=== PATIENT | male | born 1950 | race Caucasian/White ===

== ENCOUNTER → 2018-02-21 13:34 | Outpatient (CLI) | payer MEDICARE, OTHER, SELFPAY ==
--- NOTE | 2018-02-21 13:39 | CDU_ITS ---
Reason For Study: amaurosis fugax Rt. Velocities/BP Lt. Velocities/BP Prox CCA 65/19 cm/sec. Prox CCA 107/32 cm/sec. Mid CCA 78/15 cm/sec. Mid CCA 82/21 cm/sec. Dist CCA 78/22 cm/sec. Dist CCA 85/21 cm/sec. Prox ICA 60/21 cm/sec. Prox ICA 75/31 cm/sec. Mid ICA 94/35 cm/sec. Mid ICA 83/32 cm/sec. Dist ICA 71/27 cm/sec. Dist ICA 74/24 cm/sec. Rt. ICA/CCA = 1.2. Lt. ICA/CCA = 1.0. Prox ECA 148/30 cm/sec. Prox ECA 117/29 cm/sec. Rt. Vert. 42/14 cm/sec. Lt. Vert. 52/14 cm/sec. Right Extracranial There is intimal thickening but no significant atherosclerotic plaque noted in the right common carotid artery. There is heterogeneous, irregular atherosclerotic plaque noted in the right internal carotid artery. There is homogeneous, smooth atherosclerotic plaque noted in the right external carotid artery. Antegrade flow is noted in the right vertebral artery. There is heterogeneous, irregular atherosclerotic plaque noted in the right bulb. Left Extracranial There is intimal thickening but no significant atherosclerotic plaque noted in the left common carotid artery. There is homogeneous, smooth atherosclerotic plaque noted in the left internal carotid artery. There is homogeneous, smooth atherosclerotic plaque noted in the left external carotid artery. Antegrade flow is noted in the left vertebral artery. There is homogeneous, smooth atherosclerotic plaque noted in the left bulb. Procedure Carotid Duplex [id number]. Exam performed in department. Interpretation Summary Mild (<50%) stenosis right extracranial internal carotid. Mild (<50%) stenosis left extracranial internal carotid. Flow within the vertebral arteries is antegrade bilaterally. Ordering Physician: Maciel An Referring Physician: SHENA HARRINGTON Performed By: Chen Kuhn, NATALIIA, RVT
== END ==
PROVIDERS: Family Provider Family Medicine; PCP Family Medicine; Visit Provider Ophthalmology
DX: G45.3 Amaurosis fugax (principal)
CPT/HCPCS: 93880